=== PATIENT | female | born 1955 | race Caucasian/White ===

== ENCOUNTER → 2019-07-29 | Outpatient (CLI) | payer BC, OTHER ==
[~2019-07-29] MED LIST: BENICAR; FISHOIL; GLUCOPHAGE500 MG; MULTIVITAMINS; PREMPRO 0.3 MG1 EACH; ZOCOR 10 MG TAB10 MG
== END ==
LOC: ULTRA 09:27
DX: R92.2 Inconclusive mammogram (principal)

== ENCOUNTER → 2020-03-31 | Outpatient (CLI) | payer BC | LOC: RAD 10:24 | PROVIDERS: ATTEND Internal Medicine | DX: R06.00 Dyspnea, unspecified (principal); R06.02 Shortness of breath; R05 Cough; Z88.8 Allergy status to other drugs, medicaments and biological substances ==

== ENCOUNTER → 2020-12-07 | Outpatient (CLI) | payer BC | LOC: BC 09:43 | PROVIDERS: ATTEND Nurse Practitioner | DX: Z12.31 Encounter for screening mammogram for malignant neoplasm of breast (principal) ==